=== PATIENT | male | born 1960 | race Caucasian/White ===

== ENCOUNTER 2022-10-05 11:32 | Inpatient (IN) | payer MEDICAID ==
[~2022-10-05] VITALS: Ht 188 cm; Wt 81.8 kg
[~2022-10-05 11:32] MED LIST: NO HOME MEDS
[2022-10-05 11:45] LABS: BASOPHILS % (AUTO) 0.5 % (0-1); EOSINOPHILS # (AUTO) 0.4 X10'3 (0-0.9); HEMATOCRIT 43.6 % (42.0-52.0); HEMOGLOBIN 14.8 g/dl (14.0-17.9); LYMPHOCYTES # (AUTO) 0.7 X10'3 (1.1-4.8); LYMPHOCYTES % (AUTO) 7.4 % (21-51); MEAN CORPUSCULAR HEMOGLOBIN 39.2 PG (27.0-31.0); MEAN CORPUSCULAR VOLUME 115.3 FL (78-98); MEAN PLATELET VOLUME 7.3 FL (7.4-10.4); MONOCYTES # (AUTO) 0.8 X10'3 (0-0.9); MONOCYTES % (AUTO) 8.4 % (2-12); NEUTROPHILS # (AUTO) 7.8 X10'3 (1.8-7.7); NEUTROPHILS % (AUTO) 79.7 % (42-75); PLATELET COUNT 196 X10'3 (140-440); RED BLOOD COUNT 3.78 X10'6 (4.70-6.10); RED CELL DISTRIBUTION WIDTH 16.1 % (11.5-14.5); WHITE BLOOD COUNT 9.8 X10'3 (4.5-11.0)
[2022-10-05 12:01] LABS: ALANINE AMINOTRANSFERASE 22 U/L (12-78); ALBUMIN 3.3 G/DL (3.4-5.0); ALBUMIN/GLOBULIN RATIO 0.8 (1.1-1.5); ALKALINE PHOSPHATASE 109 IU/L (46-116); ANION GAP 7 (8-16); ASPARTATE AMINO TRANSFERASE 23 U/L (10-37); BILIRUBIN,TOTAL 0.5 MG/DL (0.1-1.0); BLOOD UREA NITROGEN 12 MG/DL (7-18); BUN/CREATININE RATIO 12.8 (5.4-32.0); CHLORIDE 99 MMOL/L (99-107); CREATININE 0.94 MG/DL (0.60-1.10); GLUCOSE 153 MG/DL (70-104); POTASSIUM 4.3 MMOL/L (3.5-5.1); SODIUM 134 MMOL/L (135-145); TOTAL CARBON DIOXIDE 28.5 MMOL/L (24-32); TOTAL PROTEIN 7.5 G/DL (6.4-8.2); eGFR 82 ML/MIN
[2022-10-05 12:09] LABS: MAGNESIUM 1.9 MG/DL (1.5-2.4)
[2022-10-05 13:57] LABS: ANISOCYTOSIS 1+; PLATELET ESTIMATE NORMAL
[2022-10-05 13:58] LABS: STOMATOCYTES 1+
[2022-10-05] MEDS ORDERED: GADOTERATE MEGLUMINE 7.5 MMOL/15 ML VIAL IV ONE (16:18)
--- NOTE | 2022-10-05 16:32 | NUR ---
Success A new connect request was successfully created for: TOMMY HURT : 1960 ConnectID: [id number] REASON: Code Stroke TLKW 4.5 to 24 hours ACUITY: Acuity Level 2 SUBMITTED: 10/05/2022 16:32 PST
[2022-10-05] MEDS ORDERED: aspirin 81mg tab.chew PO ONE (16:35)
[2022-10-05] MEDS ORDERED: iohexol 350MG/ML 100ml bottle IV ONE (17:43)
[2022-10-05] MEDS: docusate sod 100mg capsule PO SCH (20:00)
[2022-10-05] MEDS ORDERED: heparin, porcine 5000 units/ml vial SQ SCH (20:00)
[2022-10-05] MEDS ORDERED: acetaminophen 325mg tablet PO PRN (20:00)
[2022-10-05] MEDS ORDERED: magnesium hydroxide 30ml (MOM) UD suspension PO PRN (20:00)
[2022-10-05] MEDS ORDERED: potassium Cl 20 mEq SR tablet PO PRN ×2 (20:00)
[2022-10-05] MEDS ORDERED: magnesium 4gm in 100ml NS 100 ML IV PRN (20:00)
[2022-10-05] MEDS ORDERED: magnesium Cl slow-release 64mg tablet PO PRN (20:00)
[2022-10-05] MEDS ORDERED: mag hydrox/Alum hydrox/simeth 30ml oral suspension PO PRN (20:00)
[2022-10-05] MEDS ORDERED: ondansetron/PF 4mg/2ml inj IV PRN (20:00)
[2022-10-05] MEDS ORDERED: potassium Cl 40MEQ/1/2NS 520ml 520 ML IV PRN (20:00)
[2022-10-05] MEDS: K and/or MAG REPLACEMENT MC SCH (20:07)
[2022-10-05] MEDS: normal saline 1000ml 1,000 ML IV SCH (20:54)
[2022-10-05 23:15] VITALS: BP 133/83
--- NOTE | 2022-10-05 23:15 | NUR ---
PATIENT ADMITTED TO ROOM 345A FROM ER FOR 70LBS WEIGHT LOSS AND CVA. PLACED COMFORTABLE IN BED. VITAL SIGNS TAKEN AND RECORDED.
[2022-10-06] VITALS (18 sets, daily range): BP systolic 62–143; BP diastolic 57–96
[2022-10-06 04:40] LABS: BASOPHILS # (AUTO) 0.1 X10'3 (0-0.2); BASOPHILS % (AUTO) 0.9 % (0-1); EOSINOPHILS # (AUTO) 0.4 X10'3 (0-0.9); EOSINOPHILS % (AUTO) 6.6 % (0-6); HEMATOCRIT 37.3 % (42.0-52.0); LYMPHOCYTES # (AUTO) 0.8 X10'3 (1.1-4.8); LYMPHOCYTES % (AUTO) 13.9 % (21-51); MEAN CORPUSCULAR HEMOGLOBIN 39.9 PG (27.0-31.0); MEAN CORPUSCULAR HGB CONC 34.9 g/dL (33.0-36.5); MEAN CORPUSCULAR VOLUME 114.4 FL (78-98); MEAN PLATELET VOLUME 7.6 FL (7.4-10.4); MONOCYTES # (AUTO) 0.6 X10'3 (0-0.9); MONOCYTES % (AUTO) 10.8 % (2-12); NEUTROPHILS # (AUTO) 3.9 X10'3 (1.8-7.7); NEUTROPHILS % (AUTO) 67.8 % (42-75); PLATELET COUNT 178 X10'3 (140-440); RED BLOOD COUNT 3.26 X10'6 (4.70-6.10); RED CELL DISTRIBUTION WIDTH 16.3 % (11.5-14.5); WHITE BLOOD COUNT 5.8 X10'3 (4.5-11.0)
[2022-10-06 05:01] LABS: ALANINE AMINOTRANSFERASE 15 U/L (12-78); ALBUMIN 2.4 G/DL (3.4-5.0); ALBUMIN/GLOBULIN RATIO 0.8 (1.1-1.5); ALKALINE PHOSPHATASE 70 IU/L (46-116); ANION GAP 8 (8-16); ASPARTATE AMINO TRANSFERASE 18 U/L (10-37); BILIRUBIN,TOTAL 0.6 MG/DL (0.1-1.0); BLOOD UREA NITROGEN 7 MG/DL (7-18); BUN/CREATININE RATIO 13.2 (5.4-32.0); CALCIUM 7.2 MG/DL (8.5-10.1); CHLORIDE 109 MMOL/L (99-107); CREATININE 0.53 MG/DL (0.60-1.10); GLUCOSE 81 MG/DL (70-104); MAGNESIUM 1.6 MG/DL (1.5-2.4); POTASSIUM 3.5 MMOL/L (3.5-5.1); SODIUM 142 MMOL/L (135-145); TOTAL CARBON DIOXIDE 24.6 MMOL/L (24-32); TOTAL PROTEIN 5.5 G/DL (6.4-8.2); eGFR > 90 ML/MIN
--- NOTE | 2022-10-06 06:19 | NUR ---
Problems reprioritized. Patient report given, questions answered & plan of care reviewed with CASIE UMANZOR.
[2022-10-06] MEDS: K and/or MAG REPLACEMENT MC SCH ×2 (07:02→20:00)
[2022-10-06] MEDS ORDERED: ringers solution, lacted 1,000 ML IV SCH (08:40)
[2022-10-06] MEDS ORDERED: ondansetron/PF 4mg/2ml inj IV PRN (08:40)
[2022-10-06] MEDS ORDERED: meperidine/PF 25mg/ml syringe IV PRN ×3 (08:40)
[2022-10-06] MEDS ORDERED: proCHLORperazine 10 MG/2 ml inj IV PRN (08:40)
[2022-10-06] MEDS ORDERED: morphine 2 MG/ML inj. syringe IV PRN (08:40)
[2022-10-06] MEDS ORDERED: morphine 4 MG/ML inj SYRINge IV PRN (08:40)
[2022-10-06] MEDS ORDERED: sevoflurane 250ml liquid IH ONE (08:49)
[2022-10-06] MEDS ORDERED: fentaNYL/PF 50MCG/1 ML 2ML syringe ONE (08:54)
[2022-10-06] MEDS ORDERED: midazolam 1 mg/ML 2ml injection ONE (08:55)
[2022-10-06] MEDS ORDERED: propofol inj 20 ML IV ONE (09:00)
[2022-10-06] MEDS ORDERED: ceFAZolin 1000mg inj ONE ×2 (09:00→09:09)
[2022-10-06] MEDS ORDERED: clopidogrel 300mg tablet PO ONE (09:15)
[2022-10-06] MEDS ORDERED: BUPIVAcaine/PF 5 mg/ml 10ml IJ ONE (10:00)
--- NOTE | 2022-10-06 10:08 | NUR ---
Received from OR via HOSPITAL BED TO ROOM 6, accompanied by Anesthesiologist DR HANSEN and report given by Anesthesiolgist. PT PRESENTS WITH PIV 20G LEFT FOREARM, RIGHT NECK DERMABOND CDI, VSS.
--- NOTE | 2022-10-06 10:57 | NUR ---
Patient in room [facility]. I have received report from Yumiko and had the opportunity to ask questions and assume patient care.
--- NOTE | 2022-10-06 11:08 | NUR ---
Report called to receiving nurse CASIE UMANZOR. Transferred via HOSPITAL BED TO ROOM 345A. BED IN LOW LOCKED POSITION, CALL LIGHT IN REACH. CHART TAKEN TO NURSE AT NURSES STATION. Belongings WERE LEFT IN PT ROOM 345A.. Special Issues communicated to receiving nurse. Addendum: 10/06/22 at 1143 by Yumiko Ramirez RN RN Amended: Links added.
[2022-10-06 11:45] LABS: CHOL/HDL RATIO 7.3 (0.00-4.99); CHOLESTEROL 168 MG/DL (0-200); HDL CHOLESTEROL 23 MG/DL (35-60); LDL CHOLESTEROL 116 MG/DL (50-100); TRIGLYCERIDES 133 MG/DL (20-135)
[2022-10-06 11:48] LABS: HEMOGLOBIN A1C 4.3 % (4.5-6.2)
--- NOTE | 2022-10-06 13:43 | NUR ---
dr owen rounded on this patient and cleared for home d/c but said that pt may have to stay another night due to stroke work up, i spoke to primary nurse and primary nurse told me that hospitalist said that pt needs to stay one more night
--- NOTE | 2022-10-06 13:57 | NUR ---
Message: Lory Freeman in 345A - Gonzo rounded and said pt can go home when you're ready to discharge him. -Casi 134
[2022-10-06] MEDS: docusate sod 100mg capsule PO SCH ×2 (15:13→20:00)
[2022-10-06] MEDS: aspirin 81mg, enteric-coated 1 TAB TABLET.DR PO SCH (15:13)
--- NOTE | 2022-10-06 15:39 | NUR ---
Malnutrition Consult: Pt admit DX acute CVA w/ increasing weakness reports 70 pounds wt loss since July w/ hx trouble swallowing, vomiting, and quitting etoh 2 weeks [employer] per EMR. Pt hx meningioma s/p OR today for biopsy of R neck lymph nodes per EMR. Current chair scaled wt 180 pounds w/ only prior wt hx 2014 230 pounds reported wt in EMR. Of note, MCV 114.4 this AM and pt advanced to regular diet post-op without JUSTICE [employer] JUDGE BSS. RD recommends routine thiamine, folic acid, MVI and JUST[employer] JUD[employer] BSS this admit; MD notified. Pt seen by RD at bedside; pt reports UBW ~245-250 pounds July 15 2022 w/ decreasing appetite and trouble w/ PO foods tolerance typically leading to vomiting after eating. Pt does report can tolerate protein drinks at home though still no appetite. Pt w/ visible fat wasting evident to bilateral arms biceps/triceps and given reported wt loss hx 27% UBW in 11.5 weeks severe loss meets severe malnutrition criteria; MD notified. Quitting etoh likely to influence wt loss trends in addition to further issues; RD educated pt on importance of kcal-dense meal/drink options to optimize nutrient intake at this time. Pt reports no current nutrition questions/concerns; RD encouraged pt to make food preferences known and request RD if nutrition concerns this admit. Pt did eat ice cream on lunch tray though little else; dietary notified to send mag cups TIDWM in meantime. Pt to stay tonight prior to discharge per RN notes in EMR; given pending [employer] JUDGE BSS and discharge ONS not appropriate. Will continue to follow. Rec: 1. continue regular diet; monitor for [employer] JUDGE recs and adjustment needs; encourage PO meals 2. magic cup TIDWM; monitor for [employer] JUDGE recs and consider shakes/ONS if prolonged LOS 3. thiamine, folic acid, MVI supplementation for etoh hx w/ elevated MCV per physician discretion 4. routine bowel care 5. weekly wts Addendum: 10/06/22 at [address] Amended: Links added.
[2022-10-06] MEDS: normal saline 1000ml 1,000 ML IV SCH ×2 (16:00→20:49)
[2022-10-06] MEDS: HYDROcodone/acetaminophen 5mg/325mg tablet PO PRN ×2 (16:37→20:45)
[2022-10-06] MEDS ORDERED: ACET-1015 PO (17:27)
[2022-10-06] MEDS ORDERED: BUPR-317 PO (17:27)
[2022-10-06] MEDS ORDERED: LISI10TA27 PO (17:27)
[2022-10-06] MEDS ORDERED: HYDR-3686 PO (17:27)
[2022-10-06] MEDS ORDERED: PREG50CA64 PO (17:27)
[2022-10-06] MEDS ORDERED: IBUP-1984 PO (17:27)
--- NOTE | 2022-10-06 18:35 | NUR ---
Patient in room [facility]. I have received report from CASIE UMANZOR and had the opportunity to ask questions and assume patient care.
[2022-10-07] MEDS: HYDROcodone/acetaminophen 5mg/325mg tablet PO PRN (05:55)
[2022-10-07 06:21] LABS: BASOPHILS % (AUTO) 0.8 % (0-1); EOSINOPHILS # (AUTO) 0.3 X10'3 (0-0.9); EOSINOPHILS % (AUTO) 5.8 % (0-6); HEMATOCRIT 39.4 % (42.0-52.0); HEMOGLOBIN 13.5 g/dl (14.0-17.9); LYMPHOCYTES # (AUTO) 0.9 X10'3 (1.1-4.8); LYMPHOCYTES % (AUTO) 15.8 % (21-51); MEAN CORPUSCULAR HEMOGLOBIN 39.4 PG (27.0-31.0); MEAN CORPUSCULAR HGB CONC 34.4 g/dL (33.0-36.5); MEAN CORPUSCULAR VOLUME 114.6 FL (78-98); MEAN PLATELET VOLUME 7.3 FL (7.4-10.4); MONOCYTES # (AUTO) 0.6 X10'3 (0-0.9); MONOCYTES % (AUTO) 10.1 % (2-12); NEUTROPHILS # (AUTO) 3.8 X10'3 (1.8-7.7); NEUTROPHILS % (AUTO) 67.5 % (42-75); PLATELET COUNT 190 X10'3 (140-440); RED BLOOD COUNT 3.44 X10'6 (4.70-6.10); RED CELL DISTRIBUTION WIDTH 16.6 % (11.5-14.5); WHITE BLOOD COUNT 5.7 X10'3 (4.5-11.0)
--- NOTE | 2022-10-07 06:40 | NUR ---
Problems reprioritized. Patient report given, questions answered & plan of care reviewed with CLAUDIO UMANZOR.
[2022-10-07 06:42] LABS: ALANINE AMINOTRANSFERASE 21 U/L (12-78); ALBUMIN 2.9 G/DL (3.4-5.0); ALBUMIN/GLOBULIN RATIO 0.8 (1.1-1.5); ALKALINE PHOSPHATASE 80 IU/L (46-116); ANION GAP 6 (8-16); ASPARTATE AMINO TRANSFERASE 25 U/L (10-37); BILIRUBIN,TOTAL 0.5 MG/DL (0.1-1.0); BLOOD UREA NITROGEN 8 MG/DL (7-18); BUN/CREATININE RATIO 11.6 (5.4-32.0); CALCIUM 8.7 MG/DL (8.5-10.1); CHLORIDE 103 MMOL/L (99-107); CREATININE 0.69 MG/DL (0.60-1.10); GLUCOSE 87 MG/DL (70-104); POTASSIUM 4.4 MMOL/L (3.5-5.1); SODIUM 136 MMOL/L (135-145); TOTAL PROTEIN 6.7 G/DL (6.4-8.2); eGFR > 90 ML/MIN
--- NOTE | 2022-10-07 06:49 | NUR ---
Patient in room [facility]. I have received report from VESNA MALAGON RN and had the opportunity to ask questions and assume patient care.
[2022-10-07 07:20] VITALS: BP 108/75
[2022-10-07] MEDS: aspirin 81mg, enteric-coated 1 TAB TABLET.DR PO SCH (07:27)
[2022-10-07] MEDS: docusate sod 100mg capsule PO SCH (07:27)
[2022-10-07] MEDS: K and/or MAG REPLACEMENT MC SCH (07:32)
[2022-10-07] MEDS ORDERED: clopidogrel 75mg tablet PO SCH (08:00)
[2022-10-07] MEDS ORDERED: atorvastatin 20mg tablet PO SCH (08:00)
[2022-10-07 10:00] VITALS: BP 121/71
[2022-10-07] MEDS ORDERED: lisinopril 10 MG tablet PO SCH (11:10)
[2022-10-07] MEDS ORDERED: buproprion 150mg XL (24-hour) tablet PO SCH (11:10)
[2022-10-07] MEDS ORDERED: hydrOXYzine 25 MG tablet PO PRN (11:10)
[2022-10-07] MEDS ORDERED: buPROPion SR 150mg tablet PO SCH (11:14)
[2022-10-07 12:29] VITALS: BP_SYST 90
[2022-10-07 13:26] LABS: CLARITY,URINE CLEAR (Clear); COLOR,URINE YELLOW (Yellow); GLUCOSE, URINE NEGATIVE (Neg); KETONES,URINE NEGATIVE (Neg); LEUKOCYTE ESTERASE ,URINE NEGATIVE (Neg); NITRITES, URINE NEGATIVE (Neg); OCCULT BLOOD,URINE NEGATIVE (Neg); PROTEIN,URINE NEGATIVE (Neg); UROBILINOGEN,URINE 0.2 E.U/dL (0.2-1.0)
[2022-10-07 13:31] LABS: UA COLLECTION TYPE VOIDED
[2022-10-07 13:33] LABS: URINE AMPHETAMINE SCREEN NEGATIVE (Neg); URINE BARBITUATE SCREEN NEGATIVE (Neg); URINE BENZODIAZEPINES SCREEN POSITIVE (Neg); URINE CANNABINOID SCREEN POSITIVE (Neg); URINE COCAINE SCREEN NEGATIVE (Neg); URINE METHADONE SCREEN NEGATIVE (Neg); URINE OPIATE SCREEN POSITIVE (Neg); URINE PHENCYCLIDINE SCREEN NEGATIVE (Neg)
[2022-10-07] MEDS ORDERED: HYDR-3965 PO (13:46)
[2022-10-07] MEDS ORDERED: ATOR20TA66 PO (13:46)
[2022-10-07] MEDS ORDERED: CLOP75TA34 PO (13:46)
[2022-10-07] MEDS ORDERED: ASPI-1071 PO (13:46)
[2022-10-07] MEDS ORDERED: pregabalin 25mg capsule PO SCH (20:00)
== END 2022-10-07 14:30 | disposition home or self-care (01) | DRG 45 ==
LOC: ER 11:32 → ED HOLD 20:03 → EDBEDREQ 22:00 → SUR 3N 23:05
PROVIDERS: ADMIT Internal Medicine; ATTEND Family Medicine
PROC: B3251ZZ Computerized Tomography (CT Scan) of Bilateral Common Carotid Arteries using Low Osmolar Contrast (ICD-10-PCS; 2022-10-05)
PROC: B32G1ZZ Computerized Tomography (CT Scan) of Bilateral Vertebral Arteries using Low Osmolar Contrast (ICD-10-PCS; 2022-10-05)
PROC: B32R1ZZ Computerized Tomography (CT Scan) of Intracranial Arteries using Low Osmolar Contrast (ICD-10-PCS; 2022-10-05)
PROC: B3281ZZ Computerized Tomography (CT Scan) of Bilateral Internal Carotid Arteries using Low Osmolar Contrast (ICD-10-PCS; 2022-10-05)
PROC: 07B10ZX Excision of Right Neck Lymphatic, Open Approach, Diagnostic (ICD-10-PCS; principal; 2022-10-06 08:49)
DX: I63.9 Cerebral infarction, unspecified (principal); D32.9 Benign neoplasm of meninges, unspecified; F17.210 Nicotine dependence, cigarettes, uncomplicated; R63.4 Abnormal weight loss; R29.700 NIHSS score 0; R59.9 Enlarged lymph nodes, unspecified; G62.9 Polyneuropathy, unspecified; I10 Essential (primary) hypertension; Z86.73 Personal history of transient ischemic attack (TIA), and cerebral infarction without residual deficits; Z68.23 Body mass index [BMI] 23.0-23.9, adult
CPT/HCPCS: 36415; 70496; 70498; 70553; 80053; 80061; 80305; 80320; 81003; 82378; 82948; 83036; 83735; 83880; 84443; 84484; 85008; 85025; 86301; 87081; 93005; 93306; 97116; 97161; 99285; A4215; A4618; A6212; A6258; A7000; A9575; G0378; J0690; J2250; J2704; J3010; J3490; J7030; J7120; Q9967

== ENCOUNTER 2025-01-26 19:54 | Emergency (ER) | payer MEDICAID ==
[~2025-01-26] VITALS: Ht 188 cm; Wt 108.0 kg
[~2025-01-26 19:54] MED LIST changes: +ACET-1015 PO; +ASPI-1071 PO; +ATOR20TA66 PO; +BUPR-726 PO; +CLOP75TA34 PO; +HYDR-3686 PO; +LISI10TA27 PO; -NO HOME MEDS; +PREG50CA65 PO
[2025-01-26 19:58] VITALS: TEMP 99.4
--- NOTE | 2025-01-26 20:15 | ELECTROCARDIOGRAPH REPORT ---
[facility] Test Date: 2025-01-26 Test Time: 20:13:58 Pat Name: TOMMY HURT Department: EMERGENCY ROOM Room: Gender: M [employer]: : 1960 Requested By: MATTI JUÁREZ Order Number: [id number] Reading MD: Dr. Arun Last Measurements Intervals [place] Rate: 61 P: -6 NE: 176 QRS: 1 QRSD: 86 T: 27 QT: 425 QTc: 428 Interpretive Statements Sinus rhythm Atrial premature complexes in couplets Consider anterior infarct Electronically Signed On 02-04-2025 17:58:[address] Arun Last Please click the below link to view image of tracing.
[2025-01-26 22:02] LABS: BASOPHILS % (AUTO) 0.2 % (0-1); EOSINOPHILS % (AUTO) 0.1 % (0-6); HEMATOCRIT 44.4 % (42.0-52.0); HEMOGLOBIN 15.8 g/dl (14.0-17.9); LYMPHOCYTES # (AUTO) 0.8 X10'3 (1.1-4.8); LYMPHOCYTES % (AUTO) 8.8 % (21-51); MEAN CORPUSCULAR HEMOGLOBIN 38.2 PG (27.0-31.0); MEAN CORPUSCULAR HGB CONC 35.6 g/dL (33.0-36.5); MEAN CORPUSCULAR VOLUME 107.5 FL (78-98); MEAN PLATELET VOLUME 9.1 FL (7.4-10.4); MONOCYTES % (AUTO) 11.6 % (2-12); NEUTROPHILS # (AUTO) 6.8 X10'3 (1.8-7.7); NEUTROPHILS % (AUTO) 79.3 % (42-75); PLATELET COUNT 194 X10'3 (140-440); RED BLOOD COUNT 4.13 X10'6 (4.70-6.10); RED CELL DISTRIBUTION WIDTH 15.4 % (11.5-14.5); WHITE BLOOD COUNT 8.6 X10'3 (4.5-11.0)
[2025-01-26 22:17] LABS: ALANINE AMINOTRANSFERASE 203 U/L (12-78); ALBUMIN 2.8 G/DL (3.4-5.0); ALBUMIN/GLOBULIN RATIO 0.8 (1.1-1.5); ALKALINE PHOSPHATASE 61 IU/L (46-116); ANION GAP 7 (8-16); ASPARTATE AMINO TRANSFERASE 98 U/L (10-37); BILIRUBIN,TOTAL 0.8 MG/DL (0.1-1.0); BLOOD UREA NITROGEN 16 MG/DL (7-18); BUN/CREATININE RATIO 17.2 (10.0-20.0); CALCIUM 8.5 MG/DL (8.5-10.1); CHLORIDE 91 MMOL/L (99-107); CREATININE 0.93 MG/DL (0.60-1.10); GLUCOSE 110 MG/DL (70-104); LIPASE 22 U/L (16-77); POTASSIUM 3.1 MMOL/L (3.5-5.1); SODIUM 128 MMOL/L (135-145); TOTAL CARBON DIOXIDE 29.8 MMOL/L (24-32); TOTAL PROTEIN 6.3 G/DL (6.4-8.2); eCRCL 95 ML/MIN; eGFR 82 ML/MIN
--- NOTE | 2025-01-26 22:38 | Physician Documentation ---
History of Present Illness ~ Chief Complaint: Nausea Stated Complaint: HYPERTENSION Time Seen by MD: 22:33 OK to notify your PCP?: Yes Source: patient Mode of Arrival: POV Exam Limitations: no limitations HPI Chief Complaint: High blood pressure Caveat: Patient is a very poor historian Independent Historians: None History of Present Illness: Patient is a 64-year-old man that states that he came in here because he "wanted to just get checked out since I had surgery for a meningioma on January 18. Patient denies any nausea or vomiting. Patient denies any new or acute headache. Patient was brought in by his brother who was concerned about his blood pressure. Patient denies any chest pain. Patient denies any shortness of breath. Patient denies any recent fever. Review of systems: All systems were reviewed and are negative except for what is indicated in the history of present illness. Past Medical History: Patient denies Past Surgical History: January 18 craniotomy for meningioma resection Social History: FORMER SMOKER, FORMER ALCOHOL USE Medications: Reviewed as documented Nursing Notes Allergies: Reviewed as documented in Nursing Notes Medication Reconciliation Allergies: Coded Allergies: No Known Drug Allergies (Unverified Allergy, Unknown, 10/05/22) Scheduled Aspirin (Ecotrin*), 1 TAB PO DAILY Atorvastatin Calcium (Atorvastatin Calcium), 40 MG PO DAILY Bupropion HCl (Bupropion Xl), 1 TAB PO DAILY, (Reported) Clopidogrel Bisulfate (Clopidogrel), 75 MG PO DAILY Lisinopril (Lisinopril), 1 TAB PO DAILY, (Reported) Pregabalin (Pregabalin), 1 CAP PO BID, (Reported) Scheduled PRN Acetaminophen (Acetaminophen), 1 TAB PO Q6H PRN PRN for pain or fever, (Reported) Hydroxyzine Hcl* (Atarax*), 3 TAB PO HS PRN for insomnia, (Reported) Past Medical History Past Medical History: No Pertinent History Past Surgical History: no surgical history Alcohol Use: Heavy Drug Use: none Lives In: Home Review of Systems All Other Systems at this time: Reviewed and Negative ROS Patient denies any other acute symptoms other than above. All other systems are negative Physical Exam Vital Signs: RN Vital Signs have been reviewed: Yes, Temperature: 99.4, Source: Oral, Heart Rate: 61, Respiratory Rate: 15, BP: 158/95, Pulse Oximetry: 94, Weight: 108.000 Oxygen Flow Rate: 0 Pulse Oximetry Reflects: adequate oxygenation Physical Exam General Appearance: No distress, chronically ill-appearing HEENT: Normal OP, moist oral mucosa, PERRL, EOMI incision over the right occiput appears clean dry and intact and healing well Neck: supple, normal ROM, trachea midline Pulmonary: No respiratory distress, CTA, BS equal Cardiac: RRR, no murmur, rub or gallop, GI: nondistended, soft, nontender, normal bowel sounds, no guarding, no rebound Extremities: normal ROM, no swelling, non-tender Skin: intact, dry, warm, no rashes Neuro: AAOx3, speech is clear, no focal motor weakness Psych: normal affect, good eye contact, no apparent hallucination, normal speech Progress Results/Orders Results/Orders Orders - MATTI JUÁREZ MD Ct Head (01/26/25 22:53) Completed Orders - MATTI JUÁREZ MD Cbc/Diff (01/26/25 20:07) BMP (01/26/25 20:07) Lipase (01/26/25 20:07) CMP (01/26/25 20:07) Electrocardiogram (01/26/25 ) Ct Head (01/26/25 22:53) Ua W/Microscopic, Cult If Ind (01/26/25 22:07) Normal Saline 1000ml (Sodium Chloride 10 (01/27/25 00:15) Potassium Cl Sr Tablet (K-Dur Tablet) (01/27/25 00:15) Vital Signs 01/26/25 01/26/25 01/26/25 01/27/25 19:58 21:34 22:05 00:13 Temp 99.4 Pulse 82 61 59 Resp 15 15 17 13 B/P (MAP) 154/100 158/95 (116) 177/95 (122) Pulse Ox 95 94 93 O2 Flow Rate 0 0 0 Laboratory Tests Test 01/26/25 21:25 01/26/25 22:07 White Blood Count 8.6 Red Blood Count 4.13 L Hemoglobin 15.8 Hematocrit 44.4 Mean Corpuscular Volume 107.5 H Mean Corpuscular Hemoglobin 38.2 H Mean Corpuscular Hemoglobin Concent 35.6 Red Cell Distribution Width 15.4 H Platelet Count 194 Mean Platelet Volume 9.1 Neutrophils (%) (Auto) 79.3 H Lymphocytes (%) (Auto) 8.8 L Monocytes (%) (Auto) 11.6 Eosinophils (%) (Auto) 0.1 Basophils (%) (Auto) 0.2 Neutrophils # (Auto) 6.8 Lymphocytes # (Auto) 0.8 L Monocytes # (Auto) 1.0 H Eosinophils # (Auto) 0.0 Basophils # (Auto) 0.0 CBC Comment Sodium Level 128 L Potassium Level 3.1 L Chloride Level 91 L Carbon Dioxide Level 29.8 Anion Gap 7 L Blood Urea Nitrogen 16 Creatinine 0.93 Estimated GFR/1.73 m2 82 BUN/Creatinine Ratio 17.2 Glucose Level 110 H Calcium Level 8.5 Total Bilirubin 0.8 Aspartate Amino Transf (AST/SGOT) 98 H Alanine Aminotransferase (ALT/SGPT) 203 H Alkaline Phosphatase 61 Total Protein 6.3 L Albumin 2.8 L Globulin 3.5 Albumin/Globulin Ratio 0.8 L Lipase 22 Chemistry Comments Urine Specimen Description Cln catch midstream Urine Color Yellow Urine Clarity Clear Urine pH 6.5 Urine Specific [place] 1.010 Urine Protein Negative Urine Glucose (UA) Negative Urine Ketones Negative Urine Occult Blood Trace-intact Urine Nitrite Negative Urine Bilirubin Negative Urine Urobilinogen 0.2 Urine Leukocyte Esterase Negative Urine RBC 3-10 Urine WBC 0-4 Urine Squamous Epithelial Cells None seen Urine Bacteria 1+ Urine Culture Indicated Not ind Volume Urine Centrifuged 10 ml Urine Comment Medical Decision Making Findings Differential diagnosis includes but is not limited to: Medical screening exam, hypertension, acute neurological event Head CT without IV contrast, indication: Recent neurosurgery for a meningioma Impression: 1. No acute intracranial abnormality.Expected postsurgical 2. Change status post right suboccipital craniotomy. Laboratory data independent interpretation: CBC: UNREMARKABLE CMP: HYPONATREMIA WITH A SODIUM OF 128, HYPOKALEMIA WITH A POTASSIUM OF 3.1. Emergency department course/medical decision-making: Patient is a 64-year-old man who presents for evaluation for his blood pressure and recent neurosurgery for meningioma. Patient is neurologically intact. Case discussed with the radiologist. There are no unexpected findings to raise concern. Typical postsurgical changes are seen on the CT. Lab work is unremarkable. Patient does have a mildly low sodium of 128 and a potassium of 3.1. This will be replaced. TEST RESULTS AND TREATMENT PLAN AND FOLLOW UP NEEDED DISCUSSED WITH THE PATIENT. Departure Time of Disposition: 00:45 Disposition: 01 HOME / SELF CARE / HOMELESS Impression: Primary Impression: Hyponatremia Additional Impression: Hypokalemia Condition: Stable Discharge Instructions: Hypokalemia, Hyponatremia, [id number] Additional Instructions: FOLLOW UP WITH YOUR PRIMARY CARE DOCTOR IN 1-2 WEEKS FOR REPEAT BLOOD WORK. FOLLOW UP WITH YOUR SURGEONS AT [facility] FOR YOUR RECENT CRANIOTOMY. Education Educated: Patient Educated regarding: diagnosis, treatment, need for follow up Signature Scribe Signature: NO SCRIBE Attestation: NO SCRIBE MATTI JUÁREZ MD Jan 26, 2025 22:38
[2025-01-26 22:56] LABS: BILIRUBIN,URINE NEGATIVE (Neg); CLARITY,URINE CLEAR (Clear); COLOR,URINE YELLOW (Yellow); GLUCOSE, URINE NEGATIVE (Neg); KETONES,URINE NEGATIVE (Neg); LEUKOCYTE ESTERASE ,URINE NEGATIVE (Neg); NITRITES, URINE NEGATIVE (Neg); OCCULT BLOOD,URINE TRACE-INTACT (Neg); PH,URINE 6.5 (4.8-8.0); PROTEIN,URINE NEGATIVE (Neg); UROBILINOGEN,URINE 0.2 E.U/dL (0.2-1.0)
[2025-01-26 23:04] LABS: UA COLLECTION TYPE CLN CATCH MIDSTREAM
[2025-01-26 23:05] LABS: WBC,URINE 0-4 /HPF (0-4)
[2025-01-26 23:06] LABS: BACTERIA,URINE 1+ /HPF (Neg); SQUAMOUS EPITHELIAL CELL,UR NONE SEEN /LPF (FEW)
--- NOTE | 2025-01-27 00:39 | RADIOLOGY REPORT ---
EXAM: CT CT HEAD INDICATION: Status post meningioma surgery TECHNIQUE: CT of the head without intravenous contrast. Radiation Dose : 1. Head: CT Dose: CTDI volume is 61.96 mGy. Dose-length product is 1261.62 mGy*cm The dose indicators for CT are the volume Computed Tomography (CT) Dose Index (CTDIvol) and the Dose Length Product (DLP), and are measured in units of mGy and mGy-cm, respectively. These indicators are not patient dose, but values generated from the CT scanner acquisition factors. The report includes radiation exposure data for exposures received during this examination. COMPARISON: MRI HEAD on DOS: 10/05/22 FINDINGS: Postsurgical changes status post right suboccipital craniotomy. Moderate dural thickening is noted gomez bjacent to the craniotomy site and overlying soft tissue swelling and edema noted. There is no evidence of acute intracranial hemorrhage, extra-axial collection, mass effect, midline s hift, herniation or hydrocephalus. The ventricles, sulci and cisterns are age appropriate. The maxwell-white differentiation is intact. Patchy periventricular and subcortical white matter hypoattenuation is nonspecific but may be related to small vessel ischemic disease. The visualized paranasal sinuses and mastoid air cells are clear. The surrounding soft tissues and osseous structures are unremarkable. IMPRESSION: 1. No acute intracranial abnormality.Expected postsurgical 2. Change status post right suboccipital craniotomy. Radiation optimization: All CT scans at this facility use at least one of these dose optimization mark hniques: automated exposure control mA and/or kV adjustment per patient size (includes targeted exam s where dose is matched to clinical indication) or iterative reconstruction.
[2025-01-27] MEDS: normal saline 1000ML IV soln IVB ONE (01:01)
[2025-01-27] MEDS: potassium Cl 20 mEq SR tablet PO ONE (01:03)
[2025-01-27 03:20] VITALS: BP 172/97; PULSE 63; RESP 16; O2SAT 94
== END 2025-01-27 03:30 | disposition home or self-care (01) ==
LOC: ER 19:55
DX: E87.6 Hypokalemia (principal); E87.1 Hypo-osmolality and hyponatremia; Z98.890 Other specified postprocedural states; Z79.899 Other long term (current) drug therapy
CPT/HCPCS: 36415; 70450; 80053; 81001; 83690; 85025; 93005; 99284; J7030; 70460